=== PATIENT | female | born 1975 ===

== ENCOUNTER 2017-03-31 20:03 | Emergency (ER) | payer MEDICAID ==
[~2017-03-31] VITALS: Ht 459.7 cm; Wt 59.0 kg
[2017-03-31 20:20] VITALS: Ht 459.7 cm; Wt 59.0 kg
[2017-03-31] MEDS ORDERED: morphine 4 MG/ML VIAL IV STA (22:29)
[2017-03-31] MEDS ORDERED: ONDANSETRON 4 MG INJ IV STA (22:29)
[2017-03-31] MEDS ORDERED: SOD CHLORIDE 0.9% 1,000 ML IV STA (22:29)
[2017-03-31 23:14] LABS: BASOPHILS % 0.4 % (0.0-2.0); EOSINOPHILS # 0.5 10^3/ul (0.0-0.5); HEMATOCRIT 35.9 % (37.0-47.0); HEMOGLOBIN 11.8 g/dl (12.0-16.0); LYMPHOCYTES # 4.1 10^3/ul (0.8-2.9); LYMPHOCYTES % 42.4 % (15.0-51.0); MEAN CORPUSCULAR HEMOGLOBIN 29.9 pg (29.0-33.0); MEAN CORPUSCULAR HGB CONC 32.9 g/dl (32.0-37.0); MEAN CORPUSCULAR VOLUME 90.9 fl (82.0-101.0); MEAN PLATELET VOLUME 10.6 fl (7.4-10.4); MONOCYTE # 0.8 10^3/ul (0.3-0.9); MONOCYTES % 8.3 % (0.0-11.0); NEUTROPHIL # 4.3 10^3/ul (1.6-7.5); NEUTROPHILS % 43.7 % (39.0-77.0); PLATELET COUNT 299 10^3/UL (140-415); RED BLOOD COUNT 3.95 10^6/ul (4.20-5.40); RED CELL DISTRIBUTION WIDTH 13.2 % (11.5-14.5); WHITE BLOOD COUNT 9.8 10^3/ul (4.8-10.8)
[2017-03-31 23:32] LABS: ALBUMIN 4.4 g/dl (3.3-4.9); ALBUMIN/GLOBULIN RATIO 1.33; BILIRUBIN,INDIRECT 0.4 mg/dl (0-1.1); BILIRUBIN,TOTAL 0.4 mg/dl (0.2-1.3); CREATININE 0.5 mg/dl (0.44-1.00); POTASSIUM 4.2 mmol/L (3.5-5.1); TOTAL PROTEIN 7.7 g/dl (6.1-8.1)
--- NOTE | 2017-04-01 01:08 | RADRPT ---
PROCEDURE: CT ABDOMEN AND PELVIS WITHOUT CONTRAST: CLINICAL INDICATION: 41 years of age, female , abdominal pain. COMPARISON: None available. TECHNIQUE: CT of the abdomen and pelvis was performed without intravenous contrast. Oral contrast wa s not administered prior to the examination. Coronal and sagittal reformatted images were obtained from the axial source images. Images were revi ewed on a high-resolution PACS workstation. Dose information: Based on a 32 cm phantom, the estimated radiation dose (CTDIvol mGy) for each seri es in this exam is 7.4. The estimated cumulative dose (DLP mGy-cm) is 420. One or more of the following dose reduction techniques were used: - Automated exposure control. - Adjustment of the mA and/or kV according to patient size. - Use of iterative reconstruction technique. FINDINGS: In the absence of intravenous contrast, the study constitutes a limited assessment of the solid orga ns, bowel and vessels. LUNG BASES: Normal noncontrast appearance. ABDOMEN/PELVIS: Liver: Normal noncontrast appearance. Gallbladder: Normal noncontrast appearance. Bile ducts: No intrahepatic or extrahepatic biliary duct dilatation. Spleen: Normal noncontrast appearance. Pancreas: Normal noncontrast appearance. Adrenal glands: Normal noncontrast appearance. Kidneys and ureters: Normal noncontrast appearance. Negative for urinary calculi or hydronephrosis. Aorta and IVC: Normal noncontrast appearance. Lymph nodes: Normal noncontrast appearance. Gastrointestinal tract: Moderate formed stool in the rectum. Bowel loops are decompressed. Appendix: Normal Bladder: Normal noncontrast appearance. Pelvic Organs: The uterus and adnexa are unremarkable. Peritoneal cavity: No free fluid or free intraperitoneal air. Abdominal wall: Normal noncontrast appearance. BONES: Musculoskeletal: Bilateral osteoarthritis of the sacroiliac joints. No suspicious bone lesions. IMPRESSION: Moderate formed stool in the rectum. No other cause for abdominal pain is evident. RPTAT: HCTS Physician Amanda Date Time Electronically viewed and signed by Physician Amanda on 04/01/2017 01:08 CS/
[2017-04-01 01:19] LABS: ADD UMIC YES; UR ASCORBIC ACID NEGATIVE (NEGATIVE); UR BACTERIA FEW /HPF (NONE SEEN); UR BILIRUBIN (Dip) NEGATIVE (NEGATIVE); UR BLOOD (Dip) 1+ mg/dL (NEGATIVE); UR CLARITY SLIGHTLY CLOUDY (CLEAR); UR COLOR YELLOW (YELLOW); UR GLUCOSE (Dip) NEGATIVE (NEGATIVE); UR KETONES (Dip) NEGATIVE (NEGATIVE); UR LEUKOCYTE ESTERASE (Dip) 2+ Leu/ul (NEGATIVE); UR NITRITE (Dip) NEGATIVE (NEGATIVE); UR RBC 3 /HPF (0-5); UR SPECIFIC GRAVITY (Dip) 1.013 (1.003-1.030); UR SQUAMOUS EPITHELIAL CELL FEW /HPF (FEW); UR TOTAL PROTEIN (Dip) NEGATIVE (NEGATIVE); UR UROBILINOGEN (Dip) NEGATIVE (NEGATIVE)
[2017-04-01] MEDS ORDERED: MAGN296S40 PO (01:26)
[2017-04-01] MEDS ORDERED: CIPR500T4 PO (01:26)
--- NOTE | 2017-04-01 01:35 | ERA ---
ER Documentation Chief Complaint Date/Time DATE: 04/01/17 TIME: 01:28 Chief Complaint left abdominal pain x 5 days HPI 41-year-old female presented with a chief complaint of abdominal pain radiating to the back for the past 5 days. Patient tolerates p.o. denies nausea, vomiting , diarrhea, constipation. Denies any fever or chills. Patient states that the pain is 7 out of 10. No decrease in appetite. Has not taken any medication to relieve symptoms. Was sent by PCP who wanted to rule out appendicitis or other acute abdomen. Has not gone to the bathroom in the past few days. Patient has no other complaints and describes no other associated manifestations. Nursing notes have been reviewed and are consistent with history given. ROS All systems reviewed and are negative except as per history of present illness. Medications Home Meds Active Scripts Ciprofloxacin Hcl* (Ciprofloxacin Hcl*) 500 Mg Tablet, 500 MG PO BID for 5 Days , #10 TAB Prov:TAY GOFF PA-C 04/01/17 Magnesium Citrate* (Magnesium Citrate*) 296 Ml Solution, 296 ML PO ONCE, #1 BOTTLE Prov:TAY GOFF PA-C 04/01/17 Allergies Allergies: Coded Allergies: No Known Drug Allergies (Verified Allergy, Unknown, 03/31/17) PMhx/Soc Medical and Surgical Hx: pt denies Surgical Hx Hx Respiratory Disorders: Yes (asthma) Hx Alcohol Use: No Hx Substance Use: No Hx Tobacco Use: No Smoking Status: Never smoker Physical Exam Vitals Vital Signs Date Time Temp Pulse Resp B/P Pulse Ox O2 Delivery O2 Flow Rate FiO2 03/31/17 20:20 98.5 86 20 107/61 99 Physical Exam Const: Well-appearing. No acute distress. Head: Normocephalic, Atraumatic. Eyes: Non-injected; No discharge. EOMI and WOLF bilaterally. Ears: Normal External Ears, EACs clear, TM normal bilaterally without erythema. Nose: Normal external nose; no discharge, or sinus tenderness. Oral: No oral edema visualized. Mucous membranes moist and pink. Neck: No cervical lymphadenopathy, or masses palpated. Supple ~ No meningismus. Pulm: Good air movement in upper and lower respiratory tracts. Clear to auscultation bilaterally. No dyspnea or stridor. Cardio: Regular rate and rhythm; No murmurs, gallops or rubs auscultated. Radial pulses 2+ bilaterally. No cyanosis noted. Capillary refill less than 2 seconds. Abd: Mild suprapubic tenderness. Abdomen has normal bowel sounds in all 4 quadrants. Soft and nondistended. Mild bilateral lower quadrant tenderness. MS: Normal motor strength, normal tone with gross examination. Skin: No petechiae or rashes. Good turgor. Back: No midline, flank or CVA tenderness. Ext: No edema. Normal movement of all extremities grossly observed. Neur: Neurovascularly intact bilaterally. Psych: Normal Mood and Affect. Result Diagram: 03/31/17229903/31/172299 Results 24 hrs Laboratory Tests Test 03/31/17 23:00 04/01/17 00:20 White Blood Count 9.810^3/ul Red Blood Count 3.9510^6/ul Hemoglobin 11.8g/dl Hematocrit 35.9% Mean Corpuscular Volume 90.9fl Mean Corpuscular Hemoglobin 29.9pg Mean Corpuscular Hemoglobin Concent 32.9g/dl Red Cell Distribution Width 13.2% Platelet Count 84816^3/UL Mean Platelet Volume 10.6fl Neutrophils % 43.7% Lymphocytes % 42.4% Monocytes % 8.3% Eosinophils % 5.0% Basophils % 0.4% Nucleated Red Blood Cells % 0.0/100WBC Neutrophils # 4.310^3/ul Lymphocytes # 4.110^3/ul Monocytes # 0.810^3/ul Eosinophils # 0.510^3/ul Basophils # 0.010^3/ul Nucleated Red Blood Cells # 0.010^3/ul Sodium Level 141mmol/L Potassium Level 4.2mmol/L Chloride Level 108mmol/L Carbon Dioxide Level 24mmol/L Anion Gap 13 Blood Urea Nitrogen 14mg/dl Creatinine 0.50mg/dl Glucose Level 91mg/dl Calcium Level 9.0mg/dl Total Bilirubin 0.4mg/dl Direct Bilirubin 0.00mg/dl Indirect Bilirubin 0.4mg/dl Aspartate Amino Transf (AST/SGOT) 23IU/L Alanine Aminotransferase (ALT/SGPT) 37IU/L Alkaline Phosphatase 65IU/L Total Protein 7.7g/dl Albumin 4.4g/dl Globulin 3.30g/dl Albumin/Globulin Ratio 1.33 Lipase 125U/L Urine Color YELLOW Urine Clarity SLIGHTLY CLOUDY Urine pH 7.0 Urine Specific [place] 1.013 Urine Ketones NEGATIVEmg/dL Urine Nitrite NEGATIVEmg/dL Urine Bilirubin NEGATIVEmg/dL Urine Urobilinogen NEGATIVEmg/dL Urine Leukocyte Esterase 2+Isabel/ul Urine Microscopic RBC 3/HPF Urine Microscopic WBC 11/HPF Urine Squamous Epithelial Cells FEW/HPF Urine Bacteria FEW/HPF Urine Hemoglobin 1+mg/dL Urine Glucose NEGATIVEmg/dL Urine Total Protein NEGATIVEmg/dl Current Medications Medications (Trade) Dose Ordered Sig/Emilia Route PRN Reason Start Time Stop Time Status Last Admin Dose Admin Sodium Chloride (NS) 1,000 ml @ 1,000 mls/hr Q1H STAT IV 03/31/17 22:29 03/31/17 23:28 DC 03/31/17 23:20 Morphine Sulfate (morphine) 4 mg ONCE STAT IV 03/31/17 22:29 03/31/17 22:33 DC 03/31/17 23:20 Ondansetron HCl (Zofran Inj) 4 mg ONCE STAT IV 03/31/17 22:29 03/31/17 22:33 DC 03/31/17 23:14 Procedures/MDM 41-year-old female presented with a chief complaint of low abdominal pain as described in history and physical examination. Labs were ordered which are largely unremarkable. Urinalysis was consistent with urinary tract infection. Urine was negative. There is no CVA tenderness. Patient is afebrile. Will be treated outpatient with ciprofloxacin for urinary tract infection. Mild suprapubic tenderness suggesting cystitis with hematuria. CT was read by the radiologist and was largely unremarkable with exception of moderate stool in the rectum. At this time I have no suspicion for ovarian torsion, tubo- ovarian abscess, mechanical obstruction, ectopic , hernia, appendicitis , intestinal ischemia, PID, AAA, diverticulitis, or pyelonephritis. Most likely diagnosis is hemorrhagic cystitis versus abdominal pain of unknown origin versus slow transit constipation. Outpatient treatment will consist of MiraLAX is soft stool and ciprofloxacin 5 days for urinary tract infection. On repeat exam, the abdomen improved and showed no tenderness. The patient is well appearing, and tolerates PO. I have spoke with the patient regarding their condition and future management. They have verbally responded that they understand their status and treatment plan. The patients vitals are stable, and their current condition is appropriate for discharge. The patient will be given discharge instructions with return precautions. Departure Diagnosis: Primary Impression: Urinary tract infection Qualified Code: N30.01 - Acute cystitis with hematuria Additional Impression: Constipation Qualified Code: K59.00 - Constipation, unspecified constipation type Condition: Stable Patient Instructions: Constipation (Adult) Additional Instructions: Nick un seguimiento con wade PCP dentro de los prximos 1-3 donis para mazin evaluaci n ms completa y mazin posible derivacin a un especialista. Devuelva el departamento de emergencia inmediatamente si los sntomas empeoran o cambian. Si tiene alguna pregunta con respecto a los medicamentos, consulte con wade farmac utico o con nosotros antes de salir. Si se producen reacciones adversas mientras josafat wilfredo medicamentos, suspenda el tratamiento y regrese inmediatamente al servicio de urgencias. Pender wilfredo medicamentos segn las indicaciones y complete el curso completo del tratamiento. TAY GOFF PA-C Apr 01, 2017 01:35
== END 2017-04-01 01:35 | disposition home or self-care (01) ==
LOC: FTE 20:03
DX: N30.01 Acute cystitis with hematuria (principal); K59.00 Constipation, unspecified; J45.909 Unspecified asthma, uncomplicated
CPT/HCPCS: 36415; 74176; 80053; 81001; 83690; 85025; 96374; 96375; J2270; J2405; J7030; Z7502